=== PATIENT | female | born 1975 | race Caucasian/White ===

== ENCOUNTER 2018-06-11 12:08 | Emergency (ER) | payer SELFPAY ==
[2018-06-11 12:53] LABS: Basophils # (Auto) 0.1 K/mm3 (0.0-0.1); Basophils % (Auto) 0.7 % (0.0-1.8); Eosinophils # (Auto) 0.1 K/mm3 (0.0-0.4); Eosinophils % (Auto) 1.7 % (0.0-4.3); Hematocrit 36.6 % (30.3-42.9); Lymphocytes # (Auto) 2.6 K/mm3 (1.2-5.4); Lymphocytes % (Auto) 30.5 % (13.4-35.0); Mean Corpuscular HGB Conc 33 % (30-34); Mean Corpuscular Hemoglobin 26 pg (28-32); Mean Corpuscular Volume 80 fl (79-97); Monocytes # (Auto) 0.7 K/mm3 (0.0-0.8); Monocytes % (Auto) 8.3 % (0.0-7.3); Platelet Count 234 K/mm3 (140-440); Red Blood Count 4.59 M/mm3 (3.65-5.03); Red Cell Distribution Width 19.2 % (13.2-15.2)
[2018-06-11 13:11] LABS: Alanine Aminotransferase 10 units/L (7-56); Albumin 4.2 g/dL (3.9-5); BUN/Creatinine Ratio 16; Blood Urea Nitrogen 11 mg/dL (7-17); Hemolysis Index 8
[2018-06-11 13:15] LABS: HCG Qualitative,Urine Positive (Negative)
[2018-06-11 13:19] LABS: Amorphous Crystals,Urine 1+; Bilirubin,Urine NEG (Negative); Blood,Urine SM (Negative); Color,Urine Yellow (Yellow); Protein,Urine <15 mg/dL mg/dL (Negative); Urobilinogen,Urine < 2.0 mg/dL (<2.0)
--- NOTE | 2018-06-11 15:41 | Emergency Department Report ---
ED Female HPI - General Chief complaint: Abdominal Pain Stated complaint: 7 WKS MISCARRIAGE Time Seen by Provider: 06/11/18 15:03 Source: patient Mode of arrival: Ambulatory Limitations: Language Barrier - History of Present Illness Initial comments: 43-year-old female past medical history none she history of one miscarriage and one presents with complaint of lower abdominal cramping and vaginal bleeding. Patient is currently approximately 2 months by LMP. Patient is awake alert and oriented 3. Patient is [place]i- speaking only. Patient denies fevers chills dysuria or increased urinary frequency. States she is following up at [facility] for outpatient OB care. 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 States that she has noticed increasing vaginal bleeding and blood clots over the last several days. Patient cannot recall her blood type but states that she has been tested here before. Complaint: vaginal bleeding Onset/Timin -: week(s) Location: suprapubic Severity scale (0 -10): 4 Quality: cramping Consistency: intermittent Worsens with: none Are you Now?: Yes Last Menstrual Period: 04/12/18 EDC: 01/17/19 Associated Symptoms: vaginal bleeding - Related Data Sexually active: Yes Home Medications Medication Instructions Recorded Confirmed Last Taken Pnv95/Ferrous Fumarate/FA 1 each PO DAILY 09/05/14 09/05/14 09/04/14 [ Multivitamins Tablet] Previous Rx's Medication Instructions Recorded Last Taken Type Ibuprofen [Motrin 600 MG tab] 600 mg PO Q6H PRN #30 tablet 09/07/14 Unknown Rx oxyCODONE /ACETAMINOPHEN [Percocet 2 tab PO Q4H PRN #30 tablet 09/07/14 Unknown Rx 5/325 mg] Ibuprofen [Motrin] 600 mg PO Q8H PRN #20 tablet 06/11/18 Unknown Rx Allergies Allergy/AdvReac Type Severity Reaction Status Date / Time No Known Allergies Allergy Verified 09/05/14 06:24 ED Review of Systems ROS: Stated complaint: 7 WKS MISCARRIAGE Other details as noted in HPI Constitutional: denies: chills, fever Eyes: denies: eye pain, eye discharge, vision change ENT: denies: ear pain, throat pain Respiratory: denies: cough, shortness of breath, wheezing Cardiovascular: denies: chest pain, palpitations Endocrine: no symptoms reported Gastrointestinal: denies: abdominal pain, nausea, diarrhea Genitourinary: abnormal menses. denies: urgency, dysuria, discharge Musculoskeletal: denies: back pain, joint swelling, arthralgia Skin: denies: rash, lesions Neurological: denies: headache, weakness, paresthesias Psychiatric: denies: anxiety, depression Hematological/Lymphatic: denies: easy bleeding, easy bruising ED Past Medical Hx - Past Medical History Hx Hypertension: No Hx Congestive Heart Failure: No Hx Diabetes: Yes (gdm) Hx Deep Vein Thrombosis: No Hx Renal Disease: No Hx Sickle Cell Disease: No Hx Seizures: No Hx Asthma: No Hx COPD: No Hx HIV: No - Social History Smoking Status: Never Smoker Substance Use Type: None - Medications Home Medications: Home Medications Medication Instructions Recorded Confirmed Last Taken Type Pnv95/Ferrous Fumarate/FA 1 each PO DAILY 09/05/14 09/05/14 09/04/14 History [ Multivitamins Tablet] Ibuprofen [Motrin 600 MG tab] 600 mg PO Q6H PRN #30 tablet 09/07/14 Unknown Rx oxyCODONE /ACETAMINOPHEN [Percocet 2 tab PO Q4H PRN #30 tablet 09/07/14 Unknown Rx 5/325 mg] Ibuprofen [Motrin] 600 mg PO Q8H PRN #20 tablet 06/11/18 Unknown Rx ED Physical Exam - General Limitations: Language Barrier General appearance: alert, in no apparent distress - Head Head exam: Present: atraumatic, normocephalic - Eye Eye exam: Present: normal appearance, PERRL, EOMI - ENT ENT exam: Present: mucous membranes moist - Neck Neck exam: Present: normal inspection - Respiratory Respiratory exam: Present: normal lung sounds bilaterally. Absent: respiratory distress - Cardiovascular Cardiovascular Exam: Present: regular rate, normal rhythm. Absent: systolic murmur, diastolic murmur, rubs, gallop - GI/Abdominal GI/Abdominal exam: Present: soft, normal bowel sounds - Speculum exam: Present: vaginal bleeding - Extremities Exam Extremities exam: Present: normal inspection - Back Exam Back exam: Present: normal inspection - Neurological Exam Neurological exam: Present: alert, oriented X3 - Psychiatric Psychiatric exam: Present: normal affect, normal mood - Skin Skin exam: Present: warm, dry, intact, normal color. Absent: rash ED Course Vital Signs 06/11/18 06/11/18 12:22 18:14 Temperature 98.3 F 98.6 F Pulse Rate 70 55 L Respiratory 18 18 Rate Blood Pressure 108/52 Blood Pressure 114/55 [Left] O2 Sat by Pulse 99 100 Oximetry ED Medical Decision Making - Lab Data Result diagrams: 06/11/18 12:42 06/11/18 12:42 - Medical Decision Making A/P: Spontaneous Miscarriage 1-patient's blood type is Rh+ it is in medical record 2-CBC within normal limits. HCG level 2390 3-discussed with patient's OB Dr. Joseph Amaya at [facility]. I discussed ultrasound result with Dr. Amaya. Is consistent with spontaneous . Patient may require D&C. As per Dr. Amaya patient can follow-up in clinic for this 4-I informed patient of all results and necessity to follow-up in clinic with Dr. Amaya Critical care attestation.: If time is entered above; I have spent that time in minutes in the direct care of this critically ill patient, excluding procedure time. ED Disposition Clinical Impression: Spontaneous miscarriage Disposition: - TO HOME OR SELFCARE Is pt being admited?: No Does the pt Need Aspirin: No Condition: Stable Instructions: Spontaneous Miscarriage (ED) Additional Instructions: Pt instructed to f/u with Dr. Reyes of [facility] on 06/13/18 for follow up. Por favor deborah blood el ginecologo Dr. Jose Luis Mays 06/15/18. Prescriptions: Ibuprofen [Motrin] 600 mg PO Q8H PRN #20 tablet PRN Reason: Pain Referrals: JOSEPH AMAYA MD [Staff Physician] - 3-5 Days [facility] [Provider Group] - 3-5 Days Time of Disposition: 18:16 Print Language: SOU[place] AFR[place]
--- NOTE | 2018-06-11 17:00 | Ultrasound Report ---
FINAL REPORT PROCEDURE: US OB TRANSVAGINAL and transabdominal TECHNIQUE: Real-time transabdominal sonography of the uterus, placenta, amniotic fluid, adnexa, and fetus was performed with image documentation. Measurements were obtained to determine age/size. M-mode Doppler was used to document heartbeat. CPT 59816 HISTORY: vag bleeding and cramping COMPARISON: No prior studies are available for comparison. FINDINGS: Uterus measures 10.4 x 4.6 x 5.3 centimeters. Endometrium measures 2.0 centimeters in thickness. There are 2 anechoic structures noted in the region of the endometrium. There is one in the lower uterine segment which could be related to a gestational sac versus endometrial fluid. No yolk sac or pole are seen. If this is a gestational sac, mean sac diameter would measure 2.7 centimeters. There is another smaller hypoechoic structure just superior to this, which could be related to fluid or a small gestational sac, measuring 6 millimeters; again there is no associated pole or yolk sac. Embryonic Cardiac Activity: None identified Right Ovary: Normal. Left Ovary: There is a complex cyst measuring up to 1.6 centimeters IMPRESSION: Possible abnormal gestational sac in the lower uterine segment, with no yolk sac or pole identified versus complex endometrial fluid in the lower uterine segment. There is another small 6 millimeter hypoechoic structure in the region of the endometrium superior to this, which is indeterminate and could also be a small gestational sac versus fluid. Recommend clinical and sonographic follow-up. Cannot exclude ectopic based on these images. PROCEDURE: TECHNIQUE: HISTORY: COMPARISON: FINDINGS: IMPRESSION:
[2018-06-11 18:15] VITALS: BP 114/55
== END 2018-06-11 18:29 | disposition home or self-care (01) ==
LOC: ED 12:08
DX: O03.9 Complete or unspecified spontaneous abortion without complication (principal); O09.521 Supervision of elderly multigravida, first trimester; O24.419 Gestational diabetes mellitus in pregnancy, unspecified control; Z3A.01 Less than 8 weeks gestation of pregnancy
CPT/HCPCS: 36415; 76801; 76817; 80053; 81001; 81025; 84702; 85025; 99284

== ENCOUNTER 2018-06-17 06:58 | Day surgery (SDC) | payer MEDICAID ==
[2018-06-17] MEDS ORDERED: NACL BACTERIOSTATIC INFILTRATI ONE (07:45)
--- NOTE | 2018-06-17 08:21 | Short Stay Summary ---
Short Stay Documentation Date of service: 06/17/18 Narrative H&P: Pt is a 43yo HF LMP 04/07/18 who presented to the office for follow up on an Incomplete . Pelvic u/s showed an abnormal gestational sac in the lower uterine segment, and pt continues to have vaginal bleeing and cramping. She now presents for a D&C. - History Principal diagnosis: Incomplete H&P: obtained from office Past Medical History: No medical history Past Surgical History: Social history: no significant social history, - Allergies and Medications Current Medications: Allergies No Known Allergies Allergy (Verified 06/16/18 10:39) Home Medications Medication Instructions Recorded Confirmed Last Taken Type No Known Home Medications [No 06/16/18 06/16/18 Unknown History Reported Home Medications] - Physical exam General appearance: no acute distress Integumentary: no rash HEENT: Atraumatic Lungs: Clear to auscultation Breasts: deferred Heart: Regular rate Gastrointestinal: normal Female Genitourinary: deferred Rectal Exam: deferred Extremities: no ischemia, No edema Neurological: Normal gait, Normal speech - Brief post op/procedure progress note Date of procedure: 06/17/18 Pre-op diagnosis: Incomplete Post-op diagnosis: same Procedure: D&C Anesthesia: MAC Findings: A 10 week size uterus with scant amounts of products of conception Surgeon: KAYA NJ Estimated blood loss: minimal Pathology: list (POC) Specimen disposition: to lab Condition: stable - Hospital course Hospital course: Unremarkable. - Disposition Condition at discharge: Good Disposition: DC-01 TO HOME OR SELFCARE - Discharge Diagnoses (1) Incomplete Status: Resolved Short Stay Discharge Plan Activity: no restrictions Diet: regular Follow up with: OKSANA GODINEZ MD [Primary Care Provider] - 7 Days KAYA NJ MD [Staff Physician] - 14 Days Prescriptions: Doxycycline [Vibramycin CAP] 100 mg PO Q12HR #14 capsule Ibuprofen [Motrin] 800 mg PO Q8HR PRN #30 tablet PRN Reason: Pain, Moderate (4-6) Methylergonovine [Methergine] 0.2 mg PO Q8HR #6 tablet
[2018-06-17] MEDS ORDERED: VERSED IV ONE (08:22)
[2018-06-17] MEDS ORDERED: DIPRIVAN 10 MG/ML IV ONE (08:25)
[2018-06-17] MEDS ORDERED: XYLOCAINE MPF 2% ONE (08:25)
[2018-06-17] MEDS ORDERED: ZOFRAN ONE (08:26)
[2018-06-17] MEDS ORDERED: DECADRON ONE (08:26)
[2018-06-17] MEDS ORDERED: DILAUDID ONE (08:27)
[2018-06-17] MEDS ORDERED: ANCEF/STERILE WATER 2 GM/20 ML 2 GM/20 ML SYRINGE IV NR (09:00)
[2018-06-17] MEDS ORDERED: LACTATED RINGERS 1,000 ML IV SCH (09:00)
[2018-06-17] MEDS ORDERED: NACL 0.9% IR ONE (09:27)
--- NOTE | 2018-06-17 09:53 | Operative Report ---
Operative Report Operative Report: PREOPERATIVE DIAGNOSIS: Incomplete POSTOPERATIVE DIAGNOSIS: Same OPERATIVE PROCEDURE: Dilatation and curettage. SURGEON: Joseph Amaya MD ANESTHESIA: Gen. mask ANESTHESIOLOGIST: Dr. Leslie ESTIMATED BLOOD LOSS: 50 mls FINDINGS: A 10 week size uterus with scant amounts of products of conception COMPLICATIONS: None COUNTS: Correct x3. PROCEDURE: After the patient was correctly identified, and after general anesthesia was administered, the patient was prepped and draped in the usual sterile fashion and placed in dorsal lithotomy position. First, the bladder was emptied using a straight catheter. Next, a speculum was placed in the vaginal vault and the anterior lip of the cervix was grasped using a single- tooth tenaculum. The uterus was sounded to 10 cm. The cervical os was sequentially dilated, and an 10 mm vaccurette was used to suction blood and products of conception from the uterine cavity. After all the products of conception were removed, the procedure was considered complete. All instruments were removed from the vagina. The patient tolerated the procedure well and was transferred to the recovery room in stable condition.
[2018-06-17 10:11] VITALS: BP 105/66
== END 2018-06-17 10:57 | disposition home or self-care (01) ==
LOC: OR 06:58
PROVIDERS: ATTEND Obstetrics & Gynecology
DX: O03.4 Incomplete spontaneous abortion without complication (principal); Z98.891 History of uterine scar from previous surgery
CPT/HCPCS: 58120; 86900; 86901; 88305; 88342; J0690; J1100; J1170; J2250; J2405; J2704; J7120